=== PATIENT | male | born 1985 | race Caucasian/White ===

== ENCOUNTER 2016-12-26 18:28 | Emergency (ER) | payer OTHER ==
--- NOTE | 2016-12-26 19:54 | ED Physician Documentation ---
PD HPI UPPER EXT INJURY - Stated complaint Stated Complaint: L SHOULDER PX - Chief complaint Chief Complaint: Ext Problem - History obtained from History obtained from: Patient - History of Present Illness Location: Left, Shoulder Type of injury: Fall (playing football, fell and landed onto left shoulder. Pain and tenderness there.) Where injury occurred: [place] Timing - onset: Yesterday Timing - duration: Days (2) Timing - details: Abrupt onset, Still present Improved by: Rest Worsened by: Moving, Palpating Associated symptoms: No: Weakness, Numbness, Swelling Contributing factors: No: Prior ortho surgery Similar symptoms before: Has not had sx before Recently seen: Not recently seen Review of Systems Skin: denies: Abrasion (s), Laceration (s) Musculoskeletal: denies: Neck pain Neurologic: denies: Focal weakness, Numbness, Headache PD PAST MEDICAL HISTORY - Past Medical History Musculoskeletal: None - Past Surgical History Past Surgical History: No - Present Medications Home Medications: Ambulatory Orders Medication Instructions Recorded Confirmed No Known Home Medications [No 02/15/16 12/26/16 Known Home Medications] - Allergies Allergies/Adverse Reactions: Allergies Allergy/AdvReac Type Severity Reaction Status Date / Time No Known Drug Allergies Allergy Verified 12/26/16 18:39 - Social History Does the pt smoke?: Yes Smoking Status: Current every day smoker Does the pt drink ETOH?: Yes Does the pt have substance abuse?: No - Immunizations Immunizations are current?: Yes - POLST Patient has POLST: No PD ED PE NORMAL - Vitals Vital signs reviewed: Yes - General General: Alert and oriented X 3, No acute distress, Well developed/nourished - Neck Neck: Supple, no meningeal sign, No bony TTP, No adenopathy - Derm Derm: Normal color, Warm and dry - Extremities Extremities: Other (left shoulder with tenderness at AC and distal clavicle area. No deformity. Pain with some rotational movement but no weakness. No sublux with passive stress. ) - Neuro Neuro: No motor deficit, No sensory deficit Results - Vitals Vitals: Oxygen O2 Source Room air - Rads (name of study) left shoulder Radiology: Prelim report reviewed, EMP read contemporaneously (no fractures) PD MEDICAL DECISION MAKING - ED course Complexity details: reviewed results (could be some rotator cuff injury, but pretty good motion. Moslty tender at AC area, so presume will get better without residual deficit. ), considered differential, d/w patient Departure - Departure Disposition: 01 Home, Self Care Clinical Impression: Accidental fall Qualifiers: Encounter type: initial encounter Qualified Code(s): W19.XXXA - Unspecified fall, initial encounter Shoulder contusion Qualifiers: Encounter type: initial encounter Laterality: left Qualified Code(s): S40.012A - Contusion of left shoulder, initial encounter Condition: Stable Record reviewed to determine appropriate education?: Yes Instructions: ED Sprain AC Joint, ED Tendinitis Rotator Cuff Follow-Up: BABAK Hull [Provider Group] Comments: Ibuprofen 600 mg 2-3 times a day for the next week. Sling for the shoulder for comfort for the next several days. Gentle range of motion several times a day to reduce stiffening. Progress use and activity of the shoulder over the next several days to week. Avoid heavy lifting, overhead reaching, push pull. There is no fractures on x-ray. At this point would presume some bruising or injury to the ligaments that hold the end of the collarbone. This is called the AC joint. However there is some pain with rotational movement and so there may be some irritation of the rotator cuff tendons as well. These both should improve over the next week or so with just gentle use and some anti- inflammatories. Follow-up with your primary care if not better in that timeframe. Discharge Date/Time: 12/26/16 22:01
--- NOTE | 2016-12-26 21:21 | XRAY Preliminary Report ---
Exam: XR SHOULDER 3 VIEW LT IMPRESSION: Negative left shoulder. [facility] SITE ID: [id number]
--- NOTE | 2016-12-26 21:24 | XRAY Report ---
EXAM: LEFT SHOULDER RADIOGRAPHY EXAM DATE: 12/26/2016 09:09 PM. CLINICAL HISTORY: Fall yesterday, pain distal clavicle/shoulder. COMPARISON: None. TECHNIQUE: 3 views. FINDINGS: Bones: Normal. No fracture or bone lesion. Joints: The glenohumeral and acromioclavicular joints are normal. Soft tissues: The visualized hemithorax is unremarkable. No soft tissue swelling. IMPRESSION: Negative left shoulder. [facility] Referring Provider Line: [phone] SITE ID: [id number]
[2016-12-26 21:33] VITALS: BP 137/87
[2016-12-26] MEDS ORDERED: HYDROcod/ACET 5/325 Prepack 6 PO ONE ×2 (21:41→21:45)
== END 2016-12-26 22:01 | disposition home or self-care (01) ==
LOC: ED 18:28
DX: S40.012A Contusion of left shoulder, initial encounter (principal); W19.XXXA Unspecified fall, initial encounter; W22.09XA Striking against other stationary object, initial encounter; Y93.61 Activity, american tackle football; Y92.830 Public park as the place of occurrence of the external cause
CPT/HCPCS: 99283